=== PATIENT | female | born 1965 | race American Indian/Alaskan Native ===

== ENCOUNTER 2017-07-11 06:57 | Day surgery (SDC) | payer BC ==
[2017-07-11 07:17] VITALS: BMI 37.5
--- NOTE | 2017-07-11 08:02 | CP.SDSHP ---
Same Day Surgery H & P - History Proposed Procedure: colonoscopy Pre-Op Diagnosis: screening - Allergies Allergies: Allergies No Known Allergies Allergy (Verified 02/04/16 01:27) - Physical Exam General Appearance: NAD Vital Signs: Vital Signs 07/11/17 07:18 Temperature 98.4 F Pulse Rate 64 Respiratory 19 Rate Blood Pressure 135/77 O2 Sat by Pulse 98 Oximetry Mental Status: Alert & Oriented x3 Neuro: WNL Heart: WNL Lungs: WNL GI: WNL - {Optional Preform as Required} Abdomen: WNL - Impression Pt. Evaluated Today:Candidate for Anesthesia & Procedure: Yes - Date & Time Date: 07/11/17 Time: 08:02 Short Stay Discharge - Short Stay Discharge Admitting Diagnosis/Reason for Visit: SCREENING Disposition: HOME/ ROUTINE
[2017-07-11] MEDS ORDERED: Propofol 10 mg/ml Inj (20 ML) ONE (08:28)
[2017-07-11] MEDS ORDERED: Lactated Ringer's 500 ML IV ONE ×2 (08:30)
[2017-07-11 09:47] VITALS: RESP 18; TEMP 97
[2017-07-11 10:17] VITALS: BP 125/78; PULSE 56; O2SAT 98
== END 2017-07-11 10:00 | disposition home or self-care (01) ==
LOC: C.ENDO 06:57
PROVIDERS: ATTEND Internal Medicine Gastroenterology
DX: K64.8 Other hemorrhoids (principal)
CPT/HCPCS: 45378; 84703; J2704; J7120

== ENCOUNTER 2017-07-25 23:49 | Emergency (ER) | payer OTHER, BC ==
[2017-07-25 23:49] VITALS: BMI 37.5
[2017-07-25 23:56] VITALS: BP 154/90; PULSE 67; TEMP 97.4; O2SAT 99
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
[2017-07-26 00:35] LABS: RBC URINE 8 /hpf (0-3); URINE BILIRUBIN NEGATIVE (NEGATIVE); URINE COLOR Yellow (YELLOW); URINE GLUCOSE (UA) NORMAL (Normal); URINE KETONE NEGATIVE (NEGATIVE); URINE LEUKOCYTE ESTERASE 1+ Leu/uL (Negative); URINE PROTEIN NEGATIVE (NEGATIVE); URINE UROBILINOGEN NORMAL mg/dL (0.2-1.0); WBC URINE 6 /hpf (0-5)
[2017-07-26 00:36] LABS: URINE BLOOD 1+ (NEGATIVE)
[2017-07-26 01:11] VITALS: RESP 20
--- NOTE | 2017-07-26 08:54 | RAD ---
PROCEDURE: Cervical Spine Radiographs. HISTORY: Pain. COMPARISON: None. FINDINGS: BONES: Mildly straightened curvature. No fracture or spondylolisthesis appreciated multilevel spondylosis appears prominent at the mid inferior levels and minimal at the upper levels. No suspicious lytic or blastic change. DISC SPACES: Multilevel spondylosis. SOFT TISSUES: Normal. No prevertebral soft tissue swelling. OTHER FINDINGS: None. IMPRESSION: Straightened curvature with multilevel spondylosis but no fracture or spondylolisthesis. CT or MRI may be utilized for further characterization if indicated.
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
== END 2017-07-26 01:09 | disposition home or self-care (01) ==
LOC: C.ER 23:49
DX: S39.012A Strain of muscle, fascia and tendon of lower back, initial encounter (principal); S16.1XXA Strain of muscle, fascia and tendon at neck level, initial encounter; V49.9XXA Car occupant (driver) (passenger) injured in unspecified traffic accident, initial encounter